=== PATIENT | female | born 1940 | race African-American/Black ===

== ENCOUNTER 2017-02-19 14:02 | Outpatient (CLI) | payer OTHER ==
[~2017-02-19 14:02] MED LIST: ALEN70TA27 PO; AMLO2.5T2 PO; ASPI-1063 PO; CARV25TA55 PO; COLC0.6T51 PO; FURO40TA5 PO; INSU100V26; INSU100V9; LISI40TA4 PO; SIMV20TA6 PO; ZOLP5TAB7 PO
== END 2017-02-19 19:23 | disposition home or self-care (01) ==
LOC: SMA 14:02
PROVIDERS: ATTEND Internal Medicine
DX: Z12.31 Encounter for screening mammogram for malignant neoplasm of breast (principal)
CPT/HCPCS: G0202

== ENCOUNTER 2017-03-17 13:57 | Outpatient (CLI) | payer OTHER | END 2017-03-17 17:19 | disposition home or self-care (01) | LOC: SMA 13:57 | PROVIDERS: ATTEND Internal Medicine | DX: N63.20 Unspecified lump in the left breast, unspecified quadrant (principal); R92.8 Other abnormal and inconclusive findings on diagnostic imaging of breast | CPT/HCPCS: G0206 ==

== ENCOUNTER 2018-04-19 09:16 | Outpatient (CLI) | payer OTHER ==
[~2018-04-19 09:16] MED LIST changes: -ASPI-1063 PO; +ASPI-1153 PO
== END 2018-04-19 20:21 | disposition home or self-care (01) ==
LOC: SMA 09:16
PROVIDERS: ATTEND Internal Medicine
DX: N64.4 Mastodynia (principal); I13.0 Hypertensive heart and chronic kidney disease with heart failure and stage 1 through stage 4 chronic kidney disease, or unspecified chronic kidney disease; I50.9 Heart failure, unspecified; N18.3 Chronic kidney disease, stage 3 (moderate); Z72.89 Other problems related to lifestyle
CPT/HCPCS: 76641; 77066

== ENCOUNTER 2018-06-16 12:35 | Outpatient (CLI) | payer OTHER | END 2018-06-16 21:19 | disposition home or self-care (01) | LOC: SRD 12:35 | PROVIDERS: ATTEND Internal Medicine | DX: Z01.818 Encounter for other preprocedural examination (principal); I70.0 Atherosclerosis of aorta; Q25.49 Other congenital malformations of aorta | CPT/HCPCS: 71046-TC ==

== ENCOUNTER 2018-10-12 10:24 | Outpatient (CLI) | payer OTHER | END 2018-10-12 19:14 | disposition home or self-care (01) | LOC: SUS 10:24 | PROVIDERS: ATTEND Internal Medicine | DX: N64.4 Mastodynia (principal) | CPT/HCPCS: 76641 ==

== ENCOUNTER 2020-02-01 13:12 | Outpatient (CLI) | payer OTHER | END 2020-02-01 17:00 | disposition home or self-care (01) | LOC: SMA 13:12 | PROVIDERS: ATTEND Internal Medicine | DX: Z12.31 Encounter for screening mammogram for malignant neoplasm of breast (principal) | CPT/HCPCS: 77067 ==

== ENCOUNTER 2021-10-15 13:31 | Outpatient (CLI) | payer OTHER ==
[~2021-10-15 13:31] MED LIST changes: -ASPI-1153 PO; +ASPI-1393 PO; +LISI40TA13 PO; -LISI40TA4 PO; +SIMV-43 PO; -SIMV20TA6 PO
== END 2021-10-15 20:02 | disposition home or self-care (01) ==
LOC: SMA 13:31
PROVIDERS: ATTEND Internal Medicine
DX: Z12.31 Encounter for screening mammogram for malignant neoplasm of breast (principal); N64.4 Mastodynia; N64.89 Other specified disorders of breast
CPT/HCPCS: 76642; 77067

== ENCOUNTER 2023-01-07 00:35 | Emergency (ER) | payer OTHER ==
[~2023-01-07] VITALS: Ht 172.7 cm; Wt 79.8 kg
[2023-01-07 00:48] VITALS: BP_SYST 161; PULSE 98; RESP 17; TEMP 97.5; O2SAT 100
== END 2023-01-07 02:07 | disposition left against medical advice (07) ==
LOC: SED 00:35
DX: R10.84 Generalized abdominal pain (principal); Z53.21 Procedure and treatment not carried out due to patient leaving prior to being seen by health care provider
CPT/HCPCS: 99281